=== PATIENT | female | born 1975 | race Caucasian/White ===

== ENCOUNTER 2019-05-09 10:45 | Emergency (ER) | payer SELFPAY ==
[~2019-05-09] VITALS: Ht 177.8 cm; Wt 140.2 kg
[2019-05-09] MEDS ORDERED: ONDANSETRON HCL INJ 2MG/ML 2ML 2 MG/ML VIAL IV STA (11:38)
[2019-05-09] MEDS ORDERED: MORPHINE SULFATE 2 MG/ML SYR 1ML IV STA (11:38)
[2019-05-09] MEDS ORDERED: SODIUM CHLORIDE 0.9% 1000ML 1,000 ML ONE (11:47)
[2019-05-09] MEDS ORDERED: MORPHINE SULFATE INJ 4 MG/ML INJ 1ML ONE (11:47)
[2019-05-09] MEDS ORDERED: ONDANSETRON HCL INJ 2MG/ML 2ML 2 MG/ML VIAL ONE (11:47)
--- NOTE | 2019-05-09 11:51 | NUR ---
US CALLED ETA 45MIN, PT AND FAMILY AWARE OF POC
[2019-05-09] MEDS ORDERED: SODIUM CHLORIDE 0.9% 1000ML 1,000 ML IV SCH (12:00)
[2019-05-09] MEDS ORDERED: FENTANYL CITRATE/PF 100MCG/2 ML INJ ONE (12:40)
--- NOTE | 2019-05-09 12:43 | NUR ---
US AT BEDSIDE, PT IN TOO MUCH PAIN FOR TECH TO CONTINUE, DR SANDOVAL NOTIFIED ORDERS RECEIVED
[2019-05-09] MEDS ORDERED: FENTANYL CITRATE/PF 100MCG/2 ML INJ IV ONE (12:45)
--- NOTE | 2019-05-09 14:10 | Diagnostic Imaging Report ---
EXAM: Right upper quadrant abdominal ultrasound INDICATION: Right upper quadrant pain COMPARISON: None. TECHNIQUE: Transverse and longitudinal images of the right upper quadrant abdomen were obtained FINDINGS: Study is limited by bowel gas and patient body habitus. Liver: Size: 12.4 cm in the right midclavicular line, normal Appearance: Increased echogenicity, smooth contour Mass: No focal masses Gallbladder: No cholelithiasis. Dirty shadowing within the gallbladder suggestive of sludge. Gallbladder wall thickening to 9 mm. Positive sonographic Hewitt's sign. Bile Ducts: Intrahepatic Ducts: No dilatation Extrahepatic Ducts: Common bile duct measures 6 mm Pancreas: Visualized portions of the pancreatic head, neck and proximal body are normal. Kidney: The right kidney measures 11.3 cm without evidence of hydronephrosis or stone. Vessels: Aorta: Visualized portions are normal Inferior Vena Cava: Visualized portions are normal Main Portal Vein: 1.0 cm, normal size with hepatopetal flow. Free Fluid: No ascites or pleural effusion IMPRESSION: Sludge in the gallbladder with gallbladder wall thickening and positive sonographic Hewitt's sign, concerning for acute cholecystitis. Hepatic steatosis. Signed by: Amrita Penaloza MD on 05/09/2019 1:09 PM
--- NOTE | 2019-05-09 15:00 | NUR ---
PT TO BE TRANSFERRED, PT AND FAMILY AWARE OF POC, PT VITAL SIGNS STABLE, PT VOICES NO COMPLAINTS AT THIS TIME.
--- NOTE | 2019-05-09 15:15 | NUR ---
[facility] CALLED FOR TRANSFER ETA 25
[2019-05-09 16:10] VITALS: BP 154/86
--- OUTSIDE RECORDS SUMMARY | 2019-05-09 19:38 | XMS REPORT ---
Author Author [facility] Address Unknown Phone Unavailable Care Team Providers Care [place] Department Specialist Name Role Phone Kt SANDOVAL Unavailable Unavailable Problems This patient has no known problems. Allergies, Adverse Reactions, Alerts This patient has no known allergies or adverse reactions. Medications This patient has no known medications. Encounters Start Date/Time End Date/Time Encounter Type Admission Type Attending Clinicians Care Facility Care Department Encounter ID 2018-11-30 08:48:00 2018-11-30 08:48:00 Emergency E [id number] Results Test Description Test Time Test Comments Text Results Atomic Results Result Comments US ABDOMEN LIMITED-HOPD 2019-05-09 13:07:00 [place] [id number] Patient Name: LENORA MOODY MR #: [id number] : 1975 Age/Sex: 43/F Req #: [id number] Adm Physician: Ordered by: AMADA SANDOVAL MD Report #: [id number] Location: [facility] Room/Bed: Procedure: [id number] HOPD/US ABDOMEN LIMITED-HOPD Exam Date: Exam Time: REPORT STATUS: Signed EXAM: Right upper quadrant abdominal ultrasound INDICATION: Right upper quadrant pain COMPARISON: None. TECHNIQUE: Transverse and longitudinal images of the right upper quadrant abdomen were obtained FINDINGS: Study is limited by bowel gas and patient body habitus. Liver: Size: 12.4 cm in the right midclavicular line, normal Appearance: Increased echogenicity, smooth contour Mass: No focal masses Gallbladder: No cholelithiasis. Dirty shadowing within the gallbladder suggestive of sludge. Gallbladder wall thickening to 9 mm. Positive sonographic Hewitt's sign. Bile Ducts: Intrahepatic Ducts: No dilatation Extrahepatic Ducts: Common bile duct measures 6 mm Pancreas: Visualized portions of the pancreatic head, neck and proximal body are normal. Kidney: The right kidney measures 11.3 cm without evidence of hydronephrosis or stone. Vessels: Aorta: Visualized portions are normal Inferior Vena Cava: Visualized portions are normal Main Portal Vein: 1.0 cm, normal size with hepatopetal flow. Free Fluid: No ascites or pleural effusion IMPRESSION: Sludge in the gallbladder with gallbladder wall thickening and positive sonographic Hewitt's sign, concerning for acute cholecystitis. Hepatic steatosis. Signed by: Hilda Jaimes MD on 05/09/2019 1:09 PM Dictated By: HILDA JAIMES MD [id number] Transcribed By: GEMMA on 05/09/19 1309 COPY TO: AMADA SANDOVAL MD
== END 2019-05-09 16:11 | disposition other institution (70) ==
LOC: FSED 10:45
DX: R10.11 Right upper quadrant pain (principal); R11.0 Nausea; K80.01 Calculus of gallbladder with acute cholecystitis with obstruction
CPT/HCPCS: 76705; 80048; 80076; 81003; 81025; 85025; 99284; J2270; J2405; J3010; J7030

== ENCOUNTER 2020-11-12 17:42 | Emergency (ER) | payer SELFPAY ==
[~2020-11-12] VITALS: Ht 177.8 cm; Wt 136.1 kg
[2020-11-12] MEDS ORDERED: KETOROLAC TROMETHAMINE 30 MG/ML VIAL IV STA (19:36)
[2020-11-12] MEDS ORDERED: SODIUM CHLORIDE 0.9% 1000ML 1,000 ML IV SCH (19:45)
[2020-11-12] MEDS ORDERED: SODIUM CHLORIDE 0.9% 50ML 50 ML ONE (20:11)
[2020-11-12] MEDS ORDERED: IOPAMIDOL 370 MG/ML 200 ML INFUS..BTL INJ ONE (20:11)
[2020-11-12] MEDS ORDERED: SODIUM CHLORIDE 0.9% 1000ML 1,000 ML ONE (20:19)
[2020-11-12] MEDS ORDERED: KETOROLAC TROMETHAMINE 30 MG/ML VIAL ONE (20:19)
[2020-11-12] MEDS ORDERED: CIPRO500 MG PO (21:54)
[2020-11-12] MEDS ORDERED: FAMOTIDINE20 MG PO (21:56)
== END 2020-11-12 22:11 | disposition home or self-care (01) ==
LOC: FSED 19:30
DX: R10.30 Lower abdominal pain, unspecified (principal); N39.0 Urinary tract infection, site not specified; K44.9 Diaphragmatic hernia without obstruction or gangrene; I10 Essential (primary) hypertension; E66.01 Morbid (severe) obesity due to excess calories
CPT/HCPCS: 74177; 80048; 80076; 81003; 82553; 84484; 85025; 93005; 99283; J1885; J7030; Q9967

== ENCOUNTER 2021-07-28 22:18 | Emergency (ER) | payer SELFPAY ==
[~2021-07-28] VITALS: Ht 175.3 cm; Wt 135.2 kg
[~2021-07-28 22:18] MED LIST: CIPRO500 MG PO; FAMOTIDINE20 MG PO
[2021-07-28] MEDS ORDERED: LORAZEPAM 0.5 MG TAB PO ONE (23:15)
[2021-07-28] MEDS ORDERED: LORAZEPAM 0.5 MG TAB ONE (23:37)
[2021-07-29] MEDS ORDERED: ATIVAN0.5 MG PO (00:40)
[2021-07-29 00:43] VITALS: BP 114/73
== END 2021-07-29 00:50 | disposition home or self-care (01) ==
LOC: FSED 22:24
DX: R07.89 Other chest pain (principal); R00.2 Palpitations; F41.9 Anxiety disorder, unspecified; Z63.5 Disruption of family by separation and divorce; I10 Essential (primary) hypertension; E66.01 Morbid (severe) obesity due to excess calories
CPT/HCPCS: 71046; 80053; 82553; 84484; 85025; 99284

== ENCOUNTER 2022-02-26 17:59 | Emergency (ER) | payer SELFPAY ==
[~2022-02-26] VITALS: Ht 175.3 cm; Wt 134.9 kg
[~2022-02-26 17:59] MED LIST changes: +ATIVAN0.5 MG PO
[2022-02-26] MEDS ORDERED: KETOROLAC TROMETHAMINE 30 MG/ML VIAL IV STA (19:00)
[2022-02-26] MEDS ORDERED: ONDANSETRON HCL INJ 2MG/ML 2ML 2 MG/ML VIAL IV STA (19:00)
[2022-02-26] MEDS ORDERED: SODIUM CHLORIDE 0.9% 1000ML 1,000 ML IV SCH (19:00)
[2022-02-26] MEDS ORDERED: KETOROLAC TROMETHAMINE 30 MG/ML VIAL ONE (19:33)
[2022-02-26] MEDS ORDERED: ONDANSETRON HCL INJ 2MG/ML 2ML 2 MG/ML VIAL ONE (19:33)
[2022-02-26] MEDS ORDERED: SODIUM CHLORIDE 0.9% 1000ML 1,000 ML ONE (19:33)
== END 2022-02-26 21:03 | disposition home or self-care (01) ==
LOC: FSED 18:09
DX: B34.9 Viral infection, unspecified (principal); I10 Essential (primary) hypertension; J45.909 Unspecified asthma, uncomplicated; F41.9 Anxiety disorder, unspecified; Z79.899 Other long term (current) drug therapy
CPT/HCPCS: 83518; 87400; 99283; J1885; J2405; J7030

== ENCOUNTER 2023-10-18 18:56 | Observation (INO) | payer SELFPAY ==
[~2023-10-18] VITALS: Ht 175.3 cm; Wt 140.2 kg
[~2023-10-18 18:56] MED LIST changes: +CEFDINIR300 MG PO; +DIPHENHYDRAMINE25 MG PO; +IBUPROFEN200 MG PO; +NASACORT16.9 ML
[2023-10-18 19:29] VITALS: TEMP 98.2
[2023-10-18] MEDS ORDERED: SODIUM CHLORIDE FLUSH 10 ML SYR INJ PRN (21:00)
[2023-10-18 22:00] VITALS: PULSE 76; RESP 18
[2023-10-18 22:19] VITALS: BP 168/91; PULSE 72; RESP 20; TEMP 98.6; O2SAT 99
[2023-10-19] MEDS ORDERED: VENTOLIN HFA18 GM INH
[2023-10-19] MEDS ORDERED: ALBUTEROL1.25 MG/3 NEB
[2023-10-19] MEDS: HYDRALAZINE HCL 20 MG/ML VIAL IV ONE ×2 (01:01→01:22)
[2023-10-19 04:00] VITALS: BP 134/82; PULSE 62; RESP 20; TEMP 97.9; O2SAT 98
[2023-10-19 05:39] VITALS: PULSE 74
[2023-10-19 05:51] LABS: CREATINE KINASE 47 IU/L (29-168)
[2023-10-19 05:58] LABS: TROPONIN I < 0.001 ng/mL (0-0.300)
[2023-10-19 06:13] LABS: CHOL/HDL RATIO 3.3 (3.0-3.6)
[2023-10-19 08:00] VITALS: BP 134/82; PULSE 74; RESP 20; TEMP 97.9; O2SAT 98
[2023-10-19] MEDS: OLMESARTAN 20 MG TAB PO SCH (08:09)
[2023-10-19 08:22] VITALS: BP 140/104; PULSE 73; RESP 19; TEMP 97.5; O2SAT 99
[2023-10-19 11:43] VITALS: BP 161/64; PULSE 72; RESP 20; TEMP 98; O2SAT 99
[2023-10-19] MEDS ORDERED: LISINOPRIL10 MG PO (15:29)
[2023-10-19 15:50] VITALS: BP 141/98; PULSE 77; RESP 20; TEMP 98.1; O2SAT 98
[2023-10-19 16:15] LABS: CREATINE KINASE 55 IU/L (29-168)
[2023-10-19 16:22] LABS: TROPONIN I < 0.001 ng/mL (0-0.300)
== END 2023-10-19 16:50 | disposition home or self-care (01) ==
LOC: FSED 19:39 → ERHOLD 21:17 → MED/SURG2 22:27
PROVIDERS: ADMIT Internal Medicine; ATTEND Internal Medicine
DX: I16.0 Hypertensive urgency (principal); I10 Essential (primary) hypertension; R55 Syncope and collapse; S20.214A Contusion of middle front wall of thorax, initial encounter; M54.2 Cervicalgia; X58.XXXA Exposure to other specified factors, initial encounter; Y93.E1 Activity, personal bathing and showering; Y92.002 Bathroom of unspecified non-institutional (private) residence as the place of occurrence of the external cause; J45.909 Unspecified asthma, uncomplicated; E66.01 Morbid (severe) obesity due to excess calories; Z68.42 Body mass index [BMI] 45.0-49.9, adult; F41.9 Anxiety disorder, unspecified; Z11.52 Encounter for screening for COVID-19; Z79.899 Other long term (current) drug therapy
CPT/HCPCS: 36415; 70450; 71046; 72125; 80053; 80061; 80307; 81003; 82550; 84484 ×2; 85025; 93005; 99284; G0378 ×2; J0360; U0002

== ENCOUNTER 2024-02-16 20:07 | Emergency (ER) | payer SELFPAY ==
[~2024-02-16] VITALS: Ht 175.3 cm; Wt 142.0 kg
[~2024-02-16 20:07] MED LIST changes: +ALBUTEROL1.25 MG/3 NEB; +LISINOPRIL10 MG PO; +VENTOLIN HFA18 GM INH
[2024-02-16 21:26] VITALS: BP 174/86
[2024-02-16] MEDS: AMLODIPINE BESYLATE 10 MG TAB PO ONE (21:26)
[2024-02-16] MEDS: ONDANSETRON HCL 4 MG ORAL DISINTEGRATING TAB PO ONE (21:27)
[2024-02-16] MEDS: LACTATED RINGER'S 1,000 ML INJ ONE (22:30)
[2024-02-16] MEDS ORDERED: NORVASC10 MG PO (23:23)
[2024-02-16 23:32] VITALS: PULSE 82; RESP 18; TEMP 98.5; O2SAT 100
== END 2024-02-16 23:32 | disposition home or self-care (01) ==
LOC: FSED 20:14
DX: I16.0 Hypertensive urgency (principal); R55 Syncope and collapse; F41.9 Anxiety disorder, unspecified; I10 Essential (primary) hypertension; J45.909 Unspecified asthma, uncomplicated; E66.01 Morbid (severe) obesity due to excess calories
CPT/HCPCS: 70450; 71046; 93005; 99284; J7121; Q0162

== ENCOUNTER 2024-05-30 11:47 | Inpatient (IN) | payer SELFPAY ==
[~2024-05-30] VITALS: Ht 175.3 cm; Wt 143.8 kg
[~2024-05-30 11:47] MED LIST changes: +NORVASC10 MG PO
[2024-05-30] MEDS ORDERED: IOPAMIDOL 370 MG/ML 100 ML INFUS..BTL INJ ONE (13:15)
[2024-05-30] MEDS: METRONIDAZOLE 500MG/NS 100ML 100 ML IV ONE (13:25)
[2024-05-30] MEDS: CEFTRIAXONE 2 GM in SODIUM CHLORIDE 0.9% 100 ML IV ONE (13:26)
[2024-05-30 14:49] VITALS: PULSE 73; RESP 18; TEMP 97.6
[2024-05-30] MEDS: Clindamycin INJ 300 MG/50 ML 50 ML IV SCH (15:00)
[2024-05-30 16:30] VITALS: BP 176/90; TEMP 207.7; O2SAT 99
[2024-05-30 16:42] VITALS: BP 157/102; PULSE 71; RESP 18; TEMP 97.7; O2SAT 100
[2024-05-30] MEDS: Morphine 4mg INJECTION 4 MG/ML INJ IV PRN (17:46)
[2024-05-30] MEDS: SODIUM CHLORIDE 0.9% 1000ML 1,000 ML IV SCH (17:47)
[2024-05-30 20:00] VITALS: BP 173/98; PULSE 75; RESP 20; TEMP 98.1; O2SAT 96
[2024-05-30 21:00] VITALS: RESP 18
[2024-05-30] MEDS: ONDANSETRON HCL INJ 2MG/ML 2ML 2 MG/ML VIAL IV PRN (21:54)
[2024-05-31] VITALS (9 sets, daily range): BP systolic 134–176; BP diastolic 71–112; PULSE 74–84; RESP 16–20; TEMP 98–98.7; O2SAT 93–97
[2024-05-31] MEDS: PROMETHAZINE 12.5MG/ NACL 0.9% 12.5 MG/50 ML BAG IV PRN (00:51)
[2024-05-31 08:40] LABS: BASOPHILS # (AUTO) 0.1 (0.0-0.1); BASOPHILS % 0.6 % (0.0-1.0); EOSINOPHILS # (AUTO) 0.1 (0.0-0.4); EOSINOPHILS % 0.6 % (0.0-6.0); HEMOGLOBIN 12.2 g/dL (12.0-16.0); LYMPHOCYTES # (AUTO) 1.5 (1.0-3.2); LYMPHOCYTES % 18.4 % (18.0-39.1); MEAN CORPUSCULAR HEMOGLOBIN 26.1 pg (28-32); MEAN CORPUSCULAR HGB CONC 30.5 g/dL (31-35); MEAN CORPUSCULAR VOLUME 85.7 fL (81-99); MONOCYTES # (AUTO) 0.5 (0.2-0.8); MONOCYTES % 5.7 % (4.4-11.3); NEUTROPHILS # (AUTO) 5.8 (2.1-6.9); NEUTROPHILS % 73.9 % (38.7-80.0); PLATELET COUNT 254 x10e3/uL (140-360); RED BLOOD COUNT 4.67 x10e6/uL (3.6-5.1); RED CELL DISTRIBUTION WIDTH 15.1 % (11.7-14.4); WHITE BLOOD COUNT 7.86 x10e3/uL (4.8-10.8)
[2024-05-31 08:55] LABS: ANION GAP 15.2 mmol/L (8-16); CREATININE, SERUM 0.82 mg/dL (0.57-1.11); POTASSIUM 4.2 mmol/L (3.5-5.1)
[2024-05-31] MEDS ORDERED: ALBUTEROL SULF 0.083% NEB SOLN 3 ML NEB INH PRN (13:00)
[2024-05-31] MEDS: LISINOPRIL 10 MG TAB PO SCH (16:11)
[2024-05-31] MEDS: AMLODIPINE BESYLATE 10 MG TAB PO SCH (16:11)
[2024-05-31] MEDS: FAMOTIDINE 20 MG TAB PO SCH (16:11)
[2024-06-01] VITALS: BP 121/71; PULSE 89; RESP 18; TEMP 98.6; O2SAT 96
[2024-06-01 06:02] VITALS: BP 134/70; PULSE 74; RESP 16; TEMP 97.9; O2SAT 95
[2024-06-01 07:25] LABS: BASOPHILS # (AUTO) 0.1 (0.0-0.1); BASOPHILS % 0.7 % (0.0-1.0); EOSINOPHILS # (AUTO) 0.2 (0.0-0.4); EOSINOPHILS % 2.5 % (0.0-6.0); HEMATOCRIT 37.3 % (34.2-44.1); HEMOGLOBIN 11.4 g/dL (12.0-16.0); LYMPHOCYTES # (AUTO) 2.1 (1.0-3.2); LYMPHOCYTES % 29.4 % (18.0-39.1); MEAN CORPUSCULAR HEMOGLOBIN 25.6 pg (28-32); MEAN CORPUSCULAR HGB CONC 30.6 g/dL (31-35); MEAN CORPUSCULAR VOLUME 83.6 fL (81-99); MONOCYTES # (AUTO) 0.5 (0.2-0.8); MONOCYTES % 6.6 % (4.4-11.3); NEUTROPHILS # (AUTO) 4.3 (2.1-6.9); NEUTROPHILS % 60.2 % (38.7-80.0); PLATELET COUNT 262 x10e3/uL (140-360); RED BLOOD COUNT 4.46 x10e6/uL (3.6-5.1); RED CELL DISTRIBUTION WIDTH 15.1 % (11.7-14.4); WHITE BLOOD COUNT 7.07 x10e3/uL (4.8-10.8)
[2024-06-01 07:51] LABS: ANION GAP 12.7 mmol/L (8-16); CALCIUM 8.4 mg/dL (8.4-10.2); CREATININE, SERUM 0.76 mg/dL (0.57-1.11); POTASSIUM 3.7 mmol/L (3.5-5.1)
[2024-06-01 08:00] VITALS: BP 134/70; PULSE 74; RESP 16; TEMP 97.9; O2SAT 95
[2024-06-01 08:47] VITALS: BP 135/77; PULSE 76; RESP 20; TEMP 97.7; O2SAT 100
[2024-06-01 12:15] VITALS: BP 132/62; PULSE 74; RESP 20; TEMP 97.8; O2SAT 97
[2024-06-01] MEDS ORDERED: CLEOCIN HCL300 MG PO (12:59)
[2024-06-01] MEDS ORDERED: HYDROCHLOROTHIA25 MG PO (12:59)
[2024-06-01] MEDS ORDERED: NORVASC10 MG PO (12:59)
[2024-06-01] MEDS ORDERED: AUGMENTIN 500-1 EACH PO (12:59)
[2024-06-01] MEDS ORDERED: LISINOPRIL10 MG PO (12:59)
== END 2024-06-01 14:10 | disposition home or self-care (01) | DRG 158 ==
LOC: FSED 11:52 → ERHOLD 14:33 → MED/SURG3 16:31
PROVIDERS: ADMIT Internal Medicine; ATTEND Internal Medicine
DX: K04.7 Periapical abscess without sinus (principal); L03.211 Cellulitis of face; Z68.42 Body mass index [BMI] 45.0-49.9, adult; K02.9 Dental caries, unspecified; I10 Essential (primary) hypertension; E66.01 Morbid (severe) obesity due to excess calories; J45.909 Unspecified asthma, uncomplicated; F41.9 Anxiety disorder, unspecified; Z79.899 Other long term (current) drug therapy
CPT/HCPCS: 36415; 70491; 80048; 80053; 81025; 82948; 85025; 87040; 99284; J0696; J2270; J2405; J2543; J2550; J7030; J7050; Q9967

== ENCOUNTER 2024-12-13 22:05 | Emergency (ER) | payer SELFPAY ==
[~2024-12-13] VITALS: Ht 175.3 cm; Wt 136.1 kg
[~2024-12-13 22:05] MED LIST changes: +AUGMENTIN 500-1 EACH PO; +CLEOCIN HCL300 MG PO; +HYDROCHLOROTHIA25 MG PO
[2024-12-13] MEDS: ALBUTEROL/IPRATROPIUM 3 ML NEB NEB ONE (22:43)
[2024-12-13 22:44] VITALS: PULSE 71; RESP 18; O2SAT 97
[2024-12-13] MEDS: DEXAMETHASONE SOD PHOS 10 MG/1 ML VIAL IM ONE (23:04)
[2024-12-13] MEDS ORDERED: MEDROL4 M2 PO (23:10)
[2024-12-13 23:30] VITALS: PULSE 73; RESP 17; TEMP 97.7
[2024-12-14 00:17] VITALS: BP 165/98; PULSE 73; RESP 14; TEMP 98.4; O2SAT 98
== END 2024-12-13 23:32 | disposition home or self-care (01) ==
LOC: ER 22:24
DX: R05.9 Cough, unspecified (principal); J45.901 Unspecified asthma with (acute) exacerbation; I10 Essential (primary) hypertension; E66.9 Obesity, unspecified
CPT/HCPCS: 71045; 94640; 94799; 99283; J1100